=== PATIENT | male | born 1950 | race Caucasian/White ===

== ENCOUNTER → 2016-06-19 | Outpatient (CLI) | payer MEDICARE ==
[2016-06-19 18:13] LABS: Basophils # (A) 0.1 k/uL (0-0.2); Basophils % (A) 1 %; CH 30.7; CHCM 34.3; Eosinophils # (A) 0.3 k/uL (0-0.7); Eosinophils % (A) 4 %; HCT 46.6 % (39.0-53.0); HDW 3.07; HGB 15.8 gm/dL (13.0-17.5); Luc # (Auto) 0.15; Luc % (Auto) 2; Lymphocytes % (A) 28 %; MCH 30.4 pg (25.0-35.0); MCHC 33.8 g/dL (31.0-37.0); MCV 89.9 fL (80.0-100.0); Mean Platelet Volume 6.9; Monocytes # (A) 0.4 k/uL (0-1.0); Monocytes % (A) 5 %; Neutrophils # (A) 4.4 k/uL (1.3-7.7); Neutrophils % (A) 60 %; RBC 5.19 m/uL (4.30-5.90); RDW 13.5 % (11.5-15.5); WBC 7.3 k/uL (3.8-10.6); WBC (Perox) 7.15
[2016-06-19 18:24] LABS: ALT 62 U/L (21-72); AST 41 U/L (17-59); Alkaline Phosphatase 92 U/L (38-126); Anion Gap 14 mmol/L; Blood Urea Nitrogen 25 mg/dL (9-20); C Reactive Protein <5.0 mg/L (<10.0); Calcium 9.3 mg/dL (8.4-10.2); Carbon Dioxide 22 mmol/L (22-30); Chloride 106 mmol/L (98-107); Creatine Kinase 105 U/L (55-170); Glucose 97 mg/dL (74-99); LDH 540 U/L (313-618); Non-African American GFR(MDRD) >60 (>60 ml/min/1.73 sqM); Phosphorous 3.9 mg/dL (2.5-4.5); Potassium 4.3 mmol/L (3.5-5.1); Sodium 142 mmol/L (137-145); Total Bilirubin 0.7 mg/dL (0.2-1.3); Total Protein 6.8 g/dL (6.3-8.2)
[2016-06-19 18:25] LABS: Rheumatoid Factor, Qnt 13 IU/mL (<12)
[2016-06-19 18:32] LABS: Appearance,Urine Clear (Clear); Bilirubin,Urine Negative (Negative); Glucose,Urine (UA) Trace (Negative); Ketones,Urine Negative (Negative); Leukocyte Esterase,Urine Negative (Negative); Nitrite,Urine Negative (Negative); Protein,Urine Negative (Negative); Specific Gravity,Urine 1.019 (1.001-1.035); UA Billing (MACRO vs. MICRO) CHEM; Urobilinogen,Urine <2.0 mg/dL (<2.0)
[2016-06-19 18:36] LABS: Hemoglobin A1C 6.1 % (4.2-6.1)
[2016-06-19 19:10] LABS: Vitamin B12 708 pg/mL (239-931)
[2016-06-19 20:05] LABS: Erythrocyte Sedimentation Rate 8 mm/hr (0-15)
[2016-06-20 00:46] LABS: ANA w/Reflex to Titer NEGATIVE (NEGATIVE)
[2016-06-21 05:59] LABS: Lyme Antibodies Total(IgG/IgM) 0.05 (<0.90)
[2016-06-21 11:26] LABS: Vitamin D, 1, 25-Dihydroxy 55 pg/mL (20 - 79)
[2016-06-21 13:09] LABS: HLA B27 NEGATIVE; HLA B27 Comment SEEBELOW
[2016-06-22 07:45] LABS: Hepatits C Virus RNA, Quant <12 IU/mL (<12); LOG HCV IU/mL <1.08 (<1.08)
[2016-06-27 15:18] LABS: Mis test requested (Blood) Alpha-galactosidase
== END | disposition home or self-care (01) ==
LOC: LABWHC1 16:56
PROVIDERS: ATTEND Physical Medicine & Rehabilitation
DX: M47.817 Spondylosis without myelopathy or radiculopathy, lumbosacral region (principal); G60.3 Idiopathic progressive neuropathy; M54.5 Low back pain; R20.2 Paresthesia of skin
CPT/HCPCS: 36415; 80053; 81003; 82164; 82306; 82310; 82550; 82553; 82607; 82652; 82657; 83036; 83516; 83615; 83970; 84100; 84165; 84207; 84425; 84443; 85025; 85652; 86038; 86060; 86140; 86235; 86431; 86618; 86812; 87522

== ENCOUNTER → 2017-07-27 | Outpatient (CLI) | payer MEDICARE ==
--- NOTE | 2017-07-27 09:15 | XR ---
EXAMINATION TYPE: XR chest 2V DATE OF EXAM: 07/27/2017 COMPARISON: 12/02/2014 HISTORY: Follow-up for pneumonia TECHNIQUE: Frontal and lateral views of the chest are obtained. FINDINGS: There is no focal air space opacity, pleural effusion, or pneumothorax seen. The cardiac silhouette size is within normal limits. The osseous structures are intact. Mild multilevel degener ative changes of the thoracic spine are seen. IMPRESSION: No acute cardiopulmonary process.
== END | disposition home or self-care (01) ==
LOC: RADXRYALE 08:53
PROVIDERS: ATTEND Physician Assistant Medical
DX: J18.0 Bronchopneumonia, unspecified organism (principal)
CPT/HCPCS: 71046

== ENCOUNTER → 2017-08-20 | Outpatient (CLI) | payer MEDICARE ==
[2017-08-20 17:43] LABS: HGB 14.7 gm/dL (13.0-17.5); MCH 29.6 pg (25.0-35.0); MCHC 34.2 g/dL (31.0-37.0); MCV 86.5 fL (80.0-100.0); Mean Platelet Volume 7.6; Platelet Count 207 k/uL (150-450); RBC 4.98 m/uL (4.30-5.90); RDW 14.4 % (11.5-15.5); WBC 8.4 k/uL (3.8-10.6)
[2017-08-20 17:59] LABS: Potassium 4.4 mmol/L (3.5-5.1)
== END | disposition home or self-care (01) ==
LOC: LABWHC1 17:09
PROVIDERS: ATTEND Internal Medicine Cardiovascular Disease
DX: Z01.812 Encounter for preprocedural laboratory examination (principal); I25.10 Atherosclerotic heart disease of native coronary artery without angina pectoris
CPT/HCPCS: 36415; 80051; 82565; 84520; 85027

== ENCOUNTER 2017-09-04 10:15 | Day surgery (SDC) | payer MEDICARE ==
[~2017-09-04 10:15] MED LIST: ALPRAZolam 0.25 MG TAB PO PRN; ALPRAZolam 0.5 MG TAB PO PRN; ASPIRIN 325 MG TAB PO STA; ATORVASTATIN 80 MG TAB PO STA; NITROGLYCERIN SL TABS 0.4 MG TAB SUBLINGUAL PRN; SODIUM CHLORIDE 0.9% 1,000 ML in EMPTY BAG 1 BAG IV ONE
[2017-09-04] MEDS ORDERED: fentaNYL (PF) 50 MCG/ML 2 ML AMP ONE (11:20)
[2017-09-04] MEDS ORDERED: LIDOCAINE 2% INJ 20 MG/ML (20 ML MDV) ONE ×2 (11:20→12:34)
[2017-09-04] MEDS ORDERED: MIDAZOLAM 2 MG/2 ML VIAL ONE (11:20)
[2017-09-04] MEDS ORDERED: fentaNYL (PF) 50 MCG/ML 2 ML AMP IV ONE (11:42)
[2017-09-04] MEDS ORDERED: MIDAZOLAM 2 MG/2 ML VIAL IV ONE (11:42)
[2017-09-04] MEDS ORDERED: IV FLUID CONTINUATION 1,000 ML IV ONE (11:43)
[2017-09-04] MEDS ORDERED: LIDOCAINE 2% INJ 20 MG/ML SQ ONE (11:45)
[2017-09-04] MEDS ORDERED: BIVALIRUDIN BOLUS 250 MG/50 ML IV ONE (12:13)
[2017-09-04] MEDS ORDERED: CLOPIDOGREL 75 MG TAB ONE (12:15)
[2017-09-04] MEDS ORDERED: BIVALIRUDIN 250 MG in SODIUM CHLORIDE 0.9% 50 ML IV ONE (12:16)
[2017-09-04] MEDS ORDERED: CLOPIDOGREL 75 MG TAB PO ONE (12:20)
--- NOTE | 2017-09-04 12:20 | P.PCN ---
Date of Procedure: 09/04/17 Preoperative Diagnosis: Positive troponins and positive stress test Postoperative Diagnosis: Critical stenosis involving the mid circumflex within the stent and intermittently disease involving the proximal RCA. Procedure(s) Performed: Left heart catheterization without left ventriculography Description of Procedure: HISTORY: This is a 66-year-old gentleman with history of ischemic heart disease with a previous stent placement of the RCA, LAD and also circumflex coronary artery. Recently patient was in [facility] with chest pains and pneumonia. At that time his troponins were positive. Subsequently, patient had a stress test which showed a evidence of reversible ischemia involving the inferolateral wall and inferobasal segment. Patient is advised to have cardiac catheterization for definitive diagnosis. CONSENT:I have discussed the risks, benefits and alternative therapies for the above-mentioned procedure and for both sedation/analgesia as well as necessary blood product administration, if indicated, as they pertain to this patient. The patient has indicated understanding and acceptance of the risks and procedures discussed. PROCEDURE: Patient was brought to the lab in a fasting state. Patient was given some IV sedation. The right groin is infiltrated with lidocaine and right femoral artery was entered using Seldinger technique. A 6-Russian catheter was left in place and selective coronary arteriography and left ventriculography was performed. Patient tolerated the procedure well. Femoral angiogram was performed and Angio-Seal was applied for hemostasis. No immediate complications were noted and patient was transferred to [facility] in a stable condition Conscious Sedation: Versed 1 mg Fentanyl 25 g Duration 22minutes HEMODYNAMICS: The aortic pressure is about 100/70. Left ankle end-diastolic pressure is about 16. There was no gradient across the aortic valve. SELECTIVE CORONARY ARTERIOGRAPHY: LEFT MAIN: Long with mild disease THE LEFT ANTERIOR DESCENDING CORONARY ARTERY:. This is a good caliber vessel with patent stent in the proximal portion. The mid and distal segments are free of any significant focal lesions. There is a diagonal branch that has ostial stenosis of about 80-90% which is a small- caliber vessel THE LEFT CIRCUMFLEX AND IS CORONARY ARTERY:. This is a fairly caliber vessel giving rise to small OM branch proximally. There is a long stent in the proximal portion of the circumflex to midportion. The midportion has about 70% eccentric in-stent stenosis THE RIGHT CORONARY ARTERY:. This is a good caliber vessel which has diffuse disease in the proximal ,mid and distal segments. In the proximal portion, within the stent ,there appears to be about 50 to 60% stenosis. LEFT VENTRICULOGRAPHY: Not performed FINAL IMPRESSION: Diffuse coronary artery disease with a patent stent in the proximal LAD with a 90% ostial stenosis of the diagonal, about 70% in-stent stenosis involving the mid circumflex and about 50-60% lesion involving the proximal RCA with a diffuse disease involving the rest of the vessel. PLAN: Dr. Azar management to stent the mid circumflex. PROGNOSIS: Fair
[2017-09-04] MEDS ORDERED: NITROGLYCERIN 1000MCG/10ML SYRINGE INTRAARTER ONE (12:26)
[2017-09-04] MEDS ORDERED: IOPAMIDOL-370 125ML BTL INJ ONE (12:37)
[2017-09-04] MEDS ORDERED: RX INFO: IV CONTRAST WAS GIVEN 1 EACH MISC MISCELLANE PRN (12:51)
[2017-09-04] MEDS ORDERED: NITROGLYCERIN SL TABS 0.4 MG TAB SUBLINGUAL PRN ×2 (12:51→12:52)
[2017-09-04] MEDS ORDERED: ZOLPIDEM 5 MG TAB PO PRN (12:51)
[2017-09-04] MEDS ORDERED: ATROPINE SULFATE 0.1 MG/ML 10ML SYRINGE IV PRN (12:51)
[2017-09-04] MEDS ORDERED: MAG HYDROX/AL HYDROX/SIMETH 30 ML CUP PO PRN (12:51)
[2017-09-04] MEDS ORDERED: SODIUM CHLORIDE 0.9% 1,000 ML IV SCH (13:00)
--- NOTE | 2017-09-04 17:29 | PTCA ---
PERCUTANEOUSTRANS CORORONARY ANGIOGRAPHY Mr. Cole is a 66-year-old male with a known history of coronary artery disease, history of hypertension, hyperlipidemia, who presented with symptoms of chest discomfort and had an abnormal myocardial perfusion imaging. He underwent cardiac catheterization by Dr. Sheth and was found to have significant in-stent restenosis that was performed in 2014 in the left circumflex. In view of that, recommendation regarding coronary angioplasty and stenting. The procedure as well as risks and complications were discussed with the patient who is in full understanding and agreement. PROCEDURE: A 6-Irish FL 3.5 guiding catheter was introduced in the system. After cannulating the left main, a 0.014 balanced medium weight J-wire was advanced across the lesion and positioned distally. Then a 2.5 x 12 mm Xience Alpine stent was deployed. It was dilated at 16 atmospheres. After the last inflation, after appropriate wait, the balloon and the guidewire were withdrawn back in the guiding catheter. Images were obtained, repeated. Those images reveal stable successful stenting. At that point, the guiding catheter, the balloon and the guidewire were removed. The sheath was removed. Hemostasis was obtained with deployment of a Preclose. There was no immediate complication. The patient was returned to his room in stable condition. Of note, the patient received Angiomax per protocol as was oral loading dose of clopidogrel. He had chest discomfort with the inflation that resolved at the end of the procedure. RESULTS: Successful stenting of the mid left circumflex with reduction in stenosis from 70% to 0%. RECOMMENDATION: Patient will be continued on aspirin, Plavix, ANTONETTE inhibitor, and statin. The importance of dual antiplatelet treatment were discussed with the patient and his family and they are in full understanding and agreement. Duration of procedure is 16 minutes. MMODL / IJN: [id number] /
--- NOTE | 2017-09-04 17:35 | LTR ---
DATE OF SERVICE: 09/04/[address] Davis: I had the pleasure of performing coronary angioplasty and stenting on Mr. Cole at [facility] on September 04 and a full copy of procedure note will be forwarded to you. In brief, he was found to have significant disease involving the mid left circumflex, underwent successful stenting of that vessel using drug-eluting stent. I am hopeful that this procedure will stabilize his status. Thank you again for allowing me to participate in his care. Please feel free to call for any questions. Sincerely yours, JANETTE / ROSELIA: [phone] /
[2017-09-04] MEDS: METOPROLOL TARTRATE 25 MG TAB PO SCH (20:12)
[2017-09-04] MEDS ORDERED: ATORVASTATIN 80 MG TAB PO SCH (21:00)
[2017-09-05 06:42] LABS: Anion Gap 11 mmol/L; Blood Urea Nitrogen 15 mg/dL (9-20); Calcium 9.2 mg/dL (8.4-10.2); Carbon Dioxide 21 mmol/L (22-30); Chloride 107 mmol/L (98-107); Glucose 135 mg/dL (74-99); Potassium 4.4 mmol/L (3.5-5.1); Sodium 139 mmol/L (137-145)
[2017-09-05] MEDS: METOPROLOL TARTRATE 25 MG TAB PO SCH (08:13)
[2017-09-05 08:16] VITALS: BP 123/72; PULSE 56; RESP 16; TEMP 98
[2017-09-05] MEDS ORDERED: LISINOPRIL 10 MG TAB PO SCH (09:00)
[2017-09-05] MEDS ORDERED: ASPIRIN 81 MG PO SCH (09:00)
[2017-09-05] MEDS ORDERED: CLOPIDOGREL 75 MG TAB PO SCH (09:00)
[2017-09-05 09:37] VITALS: BMI 38.9
--- NOTE | 2017-09-05 11:37 | P.DS ---
Providers Date of admission: 09/04/2017 Attending physician: Jesus Sheth Consults: 09/04/17 12:51 Consult Physician Routine Consulting Provider: [facility] Consult Reason/Comments: Post Interventional patient Do you want consulting provider notified?: Already Contacted Primary care physician: Kirby Davis - Discharge Diagnosis(es) (1) Positive cardiac stress test Current Visit: Yes Status: Acute (2) CAD (coronary artery disease) Current Visit: No Status: Acute (3) Chest pain Current Visit: No Status: Acute (4) HTN (hypertension) Current Visit: No Status: Acute (5) Hyperlipemia Current Visit: No Status: Acute Hospital Course: This is a 66-year-old gentleman with history of ischemic heart disease and previous stent placement who was recently admitted to outside hospital with chest pain and positive troponins. Subsequently, patient had a stress test which showed ischemia in the inferolateral and inferobasal segments. Patient had outpatient cardiac catheterization and was found to have significant in- stent stenosis involving the mid circumflex. Patient also has intermittent disease involving the right coronary artery in the proximal portion and mild to moderate disease in the mid and distal portions. The stent in the LAD is patent. Patient had repeat stent placement of circumflex. Patient is feeling better and seemed to be free of any chest pain. Patient's hospital course has been stable. His groin shows mild ecchymosis without any hematoma. Patient denies any pain. Patient will be discharged home on current medical therapy except increase the dose of the atorvastatin to 80 mg and adding Plavix 75 mg. Patient will have follow-up in the office in one week. Patient is advised to any heavy lifting, pushing and pulling for the next one week. Plan - Discharge Summary Discharge Rx Participant: No New Discharge Prescriptions: New Aspirin 81 mg PO DAILY chew Atorvastatin [Lipitor] 80 mg PO HS #30 tab Clopidogrel [Plavix] 75 mg PO DAILY #90 tab Continue Metoprolol Tartrate [Lopressor] 25 mg PO BID #60 tab Nitroglycerin Sl Tabs [Nitrostat] 0.4 mg SUBLINGUAL Q5M PRN #20 tab PRN Reason: Chest Pain Cholecalciferol [Vitamin D3] 1,000 unit PO DAILY Lisinopril [Zestril] 10 mg PO DAILY Discontinued Atorvastatin [Lipitor] 10 mg PO HS No Action Aspirin 325 mg PO DAILY Discharge Medication List Aspirin 325 mg PO DAILY 11/18/15 [History] Metoprolol Tartrate [Lopressor] 25 mg PO BID #60 tab 04/24/15 [Rx] Nitroglycerin Sl Tabs [Nitrostat] 0.4 mg SUBLINGUAL Q5M PRN #20 tab 04/24/15 [Rx ] Cholecalciferol [Vitamin D3] 1,000 unit PO DAILY 05/08/16 [History] Lisinopril [Zestril] 10 mg PO DAILY 05/08/16 [History] Aspirin 81 mg PO DAILY chew 09/05/17 [Rx] Atorvastatin [Lipitor] 80 mg PO HS #30 tab 09/05/17 [Rx] Clopidogrel [Plavix] 75 mg PO DAILY #90 tab 09/05/17 [Rx] Follow up Appointment(s)/Referral(s): Jesus Sheth MD [STAFF PHYSICIAN] - 09/13/17 2:15 pm () Patient Instructions/Handouts: *[facility] - After Heart Catheterization - Customer Service Clerk Instructions, Left Heart Catheterization (DC) Discharge Disposition: HOME SELF-CARE
[2017-09-05] MEDS ORDERED: CHOLECALCIFEROL 1,000 UNIT TAB PO SCH (12:00)
== END 2017-09-05 13:40 | disposition home or self-care (01) ==
LOC: CATHCVL 10:15 → 6SEL 12:35 → CATHCVL 09-05 13:40
PROVIDERS: ATTEND Internal Medicine Cardiovascular Disease
DX: I25.10 Atherosclerotic heart disease of native coronary artery without angina pectoris (principal); T82.855A Stenosis of coronary artery stent, initial encounter; Z87.891 Personal history of nicotine dependence; I10 Essential (primary) hypertension; E78.5 Hyperlipidemia, unspecified; Z79.82 Long term (current) use of aspirin; Z79.899 Other long term (current) drug therapy; Z88.8 Allergy status to other drugs, medicaments and biological substances
CPT/HCPCS: 93458; 80048; C9600; C1769 ×2; C1887; C1894; C1874; C1760; J2001; J2250; J3010; J0583; Q9967

== ENCOUNTER → 2017-10-15 | Outpatient (CLI) | payer MEDICARE ==
--- NOTE | 2017-10-15 13:20 | XR ---
EXAMINATION TYPE: XR chest 2V DATE OF EXAM: 10/15/2017 COMPARISON: chest xray 07/27/2017 HISTORY: Shortness of breath TECHNIQUE: Frontal and lateral views of the chest are obtained. FINDINGS: There is no focal air space opacity, pleural effusion, or pneumothorax seen. The cardiac silhouette size is within normal limits. The osseous structures are intact. Postop change noted to the cervical spine. There are coronary artery calcifications. Increased AP diameter of the chest may be indicative of underlying COPD. Patient is rotated. IMPRESSION: No acute cardiopulmonary process.
== END | disposition home or self-care (01) ==
LOC: RADXRYALE 10:26
PROVIDERS: ATTEND Physician Assistant Medical
DX: R06.02 Shortness of breath (principal)
CPT/HCPCS: 71046

== ENCOUNTER → 2020-04-02 | Outpatient (CLI) | payer MEDICARE ==
--- NOTE | 2020-04-07 13:12 | P.ARTDOP ---
Arterial Doppler LOWER EXTREMITY ARTERIAL DOPPLER: DATE OF SERVICE: 04/02/2020 Reason for study: Hip and foot pain. Doppler waveforms: Multiphasic bilaterally throughout. Pulse volume recording: []. Pressure gradients: None. Ankle-brachial indices: Greater than 1 bilaterally. Toe brachial indices: 0.9 on the right, 1.14 on the left Impression: Normal study.
== END | disposition home or self-care (01) ==
LOC: RADUSWWP 12:47
PROVIDERS: ATTEND Family Medicine
DX: I73.9 Peripheral vascular disease, unspecified (principal)
CPT/HCPCS: 93922

== ENCOUNTER → 2020-04-08 | Outpatient (CLI) | payer MEDICARE ==
--- NOTE | 2020-04-08 11:07 | ECHOF ---
Referral Reason:I10 hypertention MEASUREMENTS -------- HEIGHT: 180.3 cm WEIGHT: 127.0 kg BP: RVIDd: 3.3 cm (< 3.3) IVSd: 1.5 cm (0.6 - 1.1) LVIDd: 3.9 cm (3.9 - 5.3) LVPWd: 1.5 cm (0.6 - 1.1) IVSs: 1.8 cm LVIDs: 2.4 cm LVPWs: 2.1 cm LAESV Index (A-L): 27.42 ml/m Ao Diam: 3.5 cm (2.0 - 3.7) AV Cusp: 3.0 cm (1.5 - 2.6) LA Diam: 3.4 cm (2.7 - 3.8) MV EXCURSION: 23.818 mm (> 18.000) MV EF SLOPE: 207 mm/s (70 - 150) EPSS: 0.4 cm MV E Giancarlo: 0.91 m/s MV DecT: 195 ms MV A Giancarlo: 0.55 m/s MV E/A Ratio: 1.65 RAP: 5.00 mmHg RVSP: 20.11 mmHg FINDINGS -------- This was a technically difficult study with suboptimal views. The left ventricular size is normal. There is moderate concentric left ventricular hypertrophy. O verall left ventricular systolic function is normal with, an EF between 55 - 60 %. The diastolic fi lling pattern is normal for the age of the patient 14.01. The right ventricle is mildly enlarged. The left atrial size is normal. Normal LA size by volume 22+/-6 ml/m2. The right atrial size is normal. The aortic valve is trileaflet and appears structurally normal. The mitral valve is normal. There is trace mitral regurgitation. The tricuspid valve appears structurally normal. Mild tricuspid regurgitation present. Right vent ricular systolic pressure is normal at < 35 mmHg. Trace/mild (physiologic) pulmonic regurgitation. The aortic root size is normal. IVC Not well visulized. There is no pericardial effusion. CONCLUSIONS -------- 1. The left ventricular size is normal. 2. There is moderate concentric left ventricular hypertrophy. 3. Overall left ventricular systolic function is normal with, an EF between 55 - 60 %. 4. The diastolic filling pattern is normal for the age of the patient 14.01 5. The right ventricle is mildly enlarged. 6. There is trace mitral regurgitation. 7. Mild tricuspid regurgitation present. 8. Trace/mild (physiologic) pulmonic regurgitation. 9. There is no pericardial effusion. PIPE CAULKER: Virginia Mohr RDCS
--- NOTE | 2020-04-08 14:51 | FL ---
EXAMINATION TYPE: FL barium swallow DATE OF EXAM: 04/08/2020 COMPARISON: NONE HISTORY: Hypertension, dysphagia, choking with meals. FINDINGS: Patient was given high density barium to drink. Evaluation performed under real-time fluoro scopy. Patient shows postop change of the lower cervical spine, degenerative disc changes are present, large anterior osteophyte present at the inferior margin of the C3 vertebral body. There are facet arthrop athy changes. Swallowing mechanism is normal. No extrinsic or intrinsic esophageal lesion. No evident hiatal hernia. There is some reflux from the distal esophagus up to the cervical esophagus noted on exam. 1 minute 16 seconds fluoroscopy time, 59 intraoperative images obtained. IMPRESSION: Gastroesophageal reflux.
== END | disposition home or self-care (01) ==
LOC: RADECHMAIN 10:35
PROVIDERS: ATTEND Family Medicine
DX: I07.1 Rheumatic tricuspid insufficiency (principal); I37.1 Nonrheumatic pulmonary valve insufficiency; K21.9 Gastro-esophageal reflux disease without esophagitis; I10 Essential (primary) hypertension
CPT/HCPCS: 74220; 93306

== ENCOUNTER → 2020-08-05 | Outpatient (CLI) | payer MEDICARE ==
--- NOTE | 2020-08-05 10:17 | US ---
EXAMINATION TYPE: US duplex aorta DATE OF EXAM: 08/05/2020 COMPARISON: NONE CLINICAL HISTORY: [id number] SCREENING FOR CARDIOVASCULAR DISEASE. screening for AAA EXAM MEASUREMENTS: Abdominal Aorta: Proximal: 2.1 x 1.6cm Mid: 1.6 x 1.2cm Distal: 1.4 x 1.2cm Bifurcation: RT: 1.0 X 0.8cm LT: 1.1 x 0.8cm No evidence of AAA at this time as visualized. Successful visualization through the bifurcation. IMPRESSION: No ultrasound evidence for greater than 3.0 cm AAA.
== END ==
LOC: RADUSWWP 09:32
PROVIDERS: ATTEND Family Medicine
DX: Z13.6 Encounter for screening for cardiovascular disorders (principal); I10 Essential (primary) hypertension
CPT/HCPCS: 93979

== ENCOUNTER → 2021-01-17 | Outpatient (CLI) | payer MEDICARE ==
--- NOTE | 2021-01-17 11:07 | XR ---
EXAM TYPE: LUMBAR SPINE X RAY SERIES COMPARISON: NONE HISTORY: Pain TECHNIQUE: 4 views are submitted. FINDINGS: Alignment is anatomic. The pedicles are intact. The transverse processes are intact. There is grad e 1 anterolisthesis of L4 on L5. There is multilevel moderate to severe degenerative disc disease and facet arthropathy. Retrolisthesis of L3 on L4. There is atherosclerotic change of the vasculature. D iffuse osteopenia. IMPRESSION: 1. Multilevel moderate to severe degenerative disc disease with facet arthropathy and grade 1 anterol isthesis L4 on L5. Multilevel foraminal encroachment suspected.
== END | disposition home or self-care (01) ==
LOC: RADXRYALE 09:26
PROVIDERS: ATTEND Physician Assistant Medical
DX: M51.36 Other intervertebral disc degeneration, lumbar region (principal); M46.96 Unspecified inflammatory spondylopathy, lumbar region; M54.41 Lumbago with sciatica, right side; M43.16 Spondylolisthesis, lumbar region
CPT/HCPCS: 72110

== ENCOUNTER 2021-02-25 05:42 | Day surgery (SDC) | payer MEDICARE ==
[2021-02-23 16:07] VITALS: BMI 38.2
[2021-02-25] MEDS ORDERED: SODIUM CHLORIDE 0.9% 1,000 ML IV ONE ×2 (06:10→07:25)
[2021-02-25 06:20] VITALS: RESP 18; TEMP 98.1
[2021-02-25 06:32] LABS: Basophils # (A) 0.1 k/uL (0-0.2); Basophils % (A) 1 %; Eosinophils # (A) 0.3 k/uL (0-0.7); Eosinophils % (A) 4 %; HCT 45.7 % (39.0-53.0); HGB 15.4 gm/dL (13.0-17.5); Lymphocytes # (A) 2.3 k/uL (1.0-4.8); Lymphocytes % (A) 31 %; MCH 30.4 pg (25.0-35.0); MCHC 33.8 g/dL (31.0-37.0); MCV 89.9 fL (80.0-100.0); Mean Platelet Volume 7.9; Monocytes # (A) 0.4 k/uL (0-1.0); Monocytes % (A) 6 %; Neutrophils # (A) 4.3 k/uL (1.3-7.7); Neutrophils % (A) 57 %; Platelet Count 196 k/uL (150-450); RBC 5.08 m/uL (4.30-5.90); RDW 13.3 % (11.5-15.5); WBC 7.5 k/uL (3.8-10.6)
[2021-02-25 06:55] LABS: Calcium 9.5 mg/dL (8.4-10.2); Potassium 4.6 mmol/L (3.5-5.1)
[2021-02-25 07:05] LABS: Glucose,Whole Blood 145 mg/dL (75-99)
[2021-02-25] MEDS ORDERED: HEPARIN SODIUM 1,000 UN/ML (10ML VL) ONE (07:23)
[2021-02-25] MEDS ORDERED: fentaNYL (PF) 50 MCG/ML 2 ML AMP ONE (07:23)
[2021-02-25] MEDS ORDERED: LIDOCAINE 1% INJ 10MG/ML (20 ML MDV) ONE (07:23)
[2021-02-25] MEDS ORDERED: VERAPAMIL 2.5 MG/ML 2 ML AMP ONE (07:23)
[2021-02-25] MEDS ORDERED: fentaNYL (PF) 50 MCG/ML 2 ML AMP IVP ONE (07:53)
[2021-02-25] MEDS ORDERED: MIDAZOLAM 2 MG/2 ML VIAL IVP ONE (07:53)
[2021-02-25] MEDS ORDERED: LIDOCAINE 1% INJ 10MG/ML (20 ML MDV) SQ ONE ×2 (07:57→07:58)
[2021-02-25] MEDS ORDERED: VERAPAMIL SYRINGE (5 MG/10 ML) INTRAARTER ONE (07:59)
[2021-02-25] MEDS ORDERED: HEPARIN SODIUM 1,000 UN/ML (10ML VL) IV ONE (08:01)
[2021-02-25] MEDS ORDERED: IOPAMIDOL-370 125ML BTL INJ ONE (08:25)
[2021-02-25] MEDS ORDERED: RX INFO: IV CONTRAST WAS GIVEN 1 EACH MISC MISCELLANE PRN (08:27)
[2021-02-25] MEDS ORDERED: SODIUM CHLORIDE 0.9% 1,000 ML IV SCH (08:30)
--- NOTE | 2021-02-25 10:15 | P.CARDCATH ---
Date of Procedure: 02/25/21 Preoperative Diagnosis: Positive stress test and chest pains Postoperative Diagnosis: Stable coronary artery disease with patent stents in the LAD and also right. Critical stenosis of the second diagonal at the ostium Procedure(s) Performed: Left heart catheterization with selective coronary arteriography. No left ventriculography Description of Procedure: HISTORY: This is a 70-year-old gentleman with history of multiple stent placement. Has been having some symptoms of angina and had a positive stress test with ischemia in the midanterior wall and lateral wall. He is advised to have a cardiac catheterization for definitive diagnosis CONSENT:I have discussed the risks, benefits and alternative therapies for the above-mentioned procedure and for both sedation/analgesia as well as necessary blood product administration, if indicated, as they pertain to this patient. The patient has indicated understanding and acceptance of the risks and procedures discussed. PROCEDURE: Patient was brought to the lab in a fasting state. Patient was given some IV sedation. The right wrist is infiltrated with lidocaine and right radial artery was entered using Seldinger technique. A 6-Nepali catheter was left in place and selective coronary arteriography was performed. Patient tolerated the procedure well. TR band was applied for hemostasis. No immediate complications were noted and patient was transferred to [facility] in a stable condition Conscious Sedation: Versed 1mg Fentanyl 50 g Duration 27minutes HEMODYNAMICS: The aortic pressure was very poor 130/70. Left ventricle end- diastolic pressure was not measured SELECTIVE CORONARY ARTERIOGRAPHY: LEFT MAIN: Normal length and free of occlusive disease THE LEFT ANTERIOR DESCENDING CORONARY ARTERY:. Good caliber vessel with patent stents in the midportion. The second diagonal branch has critical lesion involving the ostium. This has been chronic without any acute change. No other significant stenosis noted in the left anterior descending THE LEFT CIRCUMFLEX AND IS CORONARY ARTERY: Good caliber vessel giving rise to small sized OM branch. The vessel is free of any significant focal occlusive lesion THE RIGHT CORONARY ARTERY:. This is a good caliber vessel with multiple stents. There is mild in-stent stenosis in midportion which is about 30-40%. This has been chronic without any acute change. Rest of the vessel is mild plaque without any critical lesions LEFT VENTRICULOGRAPHY: Not performed FINAL IMPRESSION:. Table coronary disease with critical lesion involving the ostium of the second diagonal. The right coronary artery has mild in-stent stenosis. No other critical lesions are noted at this time. No significant change compared 2018 PLAN: Maximum medical therapy. Films are reviewed with the Dr. Azar . PROGNOSIS: Fair
[2021-02-25 12:03] VITALS: BP 146/66; PULSE 56
== END 2021-02-25 12:54 | disposition home or self-care (01) ==
LOC: CATHCVL 05:42
PROVIDERS: ATTEND Internal Medicine Cardiovascular Disease
DX: I25.10 Atherosclerotic heart disease of native coronary artery without angina pectoris (principal); Z95.818 Presence of other cardiac implants and grafts
CPT/HCPCS: 93454; 80048; 85025; 87635; C1894; C1769; J2250; J2001; J3010; J1644; Q9967

== ENCOUNTER → 2022-03-03 | Outpatient (CLI) | payer MEDICARE ==
--- NOTE | 2022-03-03 12:09 | XR ---
EXAMINATION TYPE: XR chest 2V DATE OF EXAM: 03/03/2022 COMPARISON: 10/15/17 HISTORY: Shortness of breath TECHNIQUE: Frontal and lateral views of the chest are obtained. FINDINGS: Scattered senescent parenchymal changes noted. Hyperinflation compatible with COPD. No evidence for infiltrate. No evidence for atelectasis. Heart size is stable. Mediastinal structures are stable and grossly unremarkable. No evidence for hilar prominence. Degenerative changes dorsal spine. IMPRESSION: 1. No evidence for acute pulmonary disease.
== END | disposition home or self-care (01) ==
LOC: RADXRYALE 11:42
PROVIDERS: ATTEND Physician Assistant Medical
DX: R06.02 Shortness of breath (principal)
CPT/HCPCS: 71046

== ENCOUNTER → 2022-03-17 | Outpatient (CLI) | payer MEDICARE ==
--- NOTE | 2022-03-18 16:11 | CT ---
EXAMINATION TYPE: CT brain wo con DATE OF EXAM: 03/17/2022 COMPARISON: None HISTORY: loss of balance and dizziness CT DLP: 1064.30 mGycm Automated exposure control for dose reduction was used. Helical imaging through the brain. Coronal sa gittal reconstructions. FINDINGS: There is no hemorrhage or hydrocephalus. Periventricular white matter shows patchy low attenuation. C alvarium is intact. Paranasal sinuses and mastoid air cells as visualized are normal. Orbits are symm etric. IMPRESSION: NONSPECIFIC WHITE MATTER DEMYELINATION MOST LIKELY RELATED TO CHRONIC SMALL VESSEL ISCHEMIC CHANGES. MRI MAY BE OF BENEFIT.
== END | disposition home or self-care (01) ==
LOC: RADCTMAIN 16:33
PROVIDERS: ATTEND Family Medicine
DX: G93.89 Other specified disorders of brain (principal); I10 Essential (primary) hypertension; E11.9 Type 2 diabetes mellitus without complications; E78.2 Mixed hyperlipidemia
CPT/HCPCS: 70450

== ENCOUNTER 2023-12-05 22:36 | Observation (INO) | payer MEDICARE ==
[2023-12-05] MEDS: ASPIRIN 81 MG PO STA (23:33)
[2023-12-05] MEDS: NITROGLYCERIN OINT 1 INCH/GM PACKET TOPICAL SCH (23:34)
[2023-12-05] MEDS: SODIUM CHLORIDE 0.9% 1,000 ML IV STA (23:34)
[2023-12-05 23:46] LABS: Basophils # (A) 0.1 k/uL (0-0.2); Basophils % (A) 1 %; Eosinophils # (A) 0.2 k/uL (0-0.7); Eosinophils % (A) 2 %; HCT 45.5 % (39.0-53.0); Lymphocytes # (A) 3.1 k/uL (1.0-4.8); Lymphocytes % (A) 34 %; MCH 29.3 pg (25.0-35.0); MCHC 33.1 g/dL (31.0-37.0); MCV 88.5 fL (80.0-100.0); Mean Platelet Volume 8.5; Monocytes # (A) 0.5 k/uL (0-1.0); Monocytes % (A) 6 %; Neutrophils % (A) 55 %; Platelet Count 202 k/uL (150-450); RBC 5.14 m/uL (4.30-5.90); RDW 14.7 % (11.5-15.5)
[2023-12-05 23:51] LABS: Partial Thromboplastin Time 23.9 sec (22.0-30.0); Prothrombin Time 11.1 sec (10.0-12.5)
[2023-12-06 00:02] LABS: ALT 22 U/L (4-49); AST 35 U/L (17-59); African American GFR (CKD) 77 (>60 ml/min/1.73 sqM); Albumin 4.3 g/dL (3.5-5.0); Alkaline Phosphatase 95 U/L (38-126); Anion Gap 10 mmol/L; Blood Urea Nitrogen 23 mg/dL (9-20); Calcium 9.5 mg/dL (8.4-10.2); Carbon Dioxide 22 mmol/L (22-30); Chloride 105 mmol/L (98-107); Glucose 112 mg/dL (74-99); Magnesium 1.8 mg/dL (1.6-2.3); Non-African American GFR(CKD) 67 (>60 ml/min/1.73 sqM); Potassium 4.5 mmol/L (3.5-5.1); Sodium 137 mmol/L (137-145); Total Bilirubin 1.1 mg/dL (0.2-1.3); Total Protein 6.7 g/dL (6.3-8.2)
--- NOTE | 2023-12-06 00:13 | ED ---
General Adult HPI - General Chief complaint: Chest Pain Stated complaint: chest pain Time Seen by Provider: 12/05/23 23:00 Source: patient, EMS, RN notes reviewed, old records reviewed Mode of arrival: EMS Limitations: no limitations - History of Present Illness Initial comments: Patient is a 72-year-old male who was transferred here from [facility] for chest pain. Has a history significant for multiple cardiac stents. States he had severe left-sided chest pain yesterday that went away on its own. Had some mild residual pressure which is somewhat normal for him. Also has a history of intermittent dizziness especially with ambulation. Presented to his PCP earlier today who instructed him to go to the ER for workup. Patient does follow-up with cardiology at our facility and he was transferred here for further evaluation. They did a cardiopulmonary workup which was unremarkable including D-dimer within normal limits, undetectable troponin. EKG looked within acceptable limits as well. He was transferred here for cardiac obs. Currently has no significant chest discomfort. Presents for further evaluation. He did not receive aspirin at the other facility. - Related Data Home Medications Medication Instructions Recorded Confirmed Cholecalciferol [Vitamin D3 (25 5,000 unit PO DAILY 05/08/16 02/23/21 Mcg = 1000 Iu)] lisinopriL [Zestril] 15 mg PO DAILY 05/08/16 02/25/21 Aspirin 325 mg PO DAILY 02/23/21 02/25/21 Cetirizine HCl [Zyrtec] 10 mg PO DAILY 02/23/21 02/23/21 Metoprolol Tartrate [Lopressor] 12.5 mg PO BID 02/23/21 02/25/21 Omeprazole 20 mg PO DAILY 02/23/21 02/25/21 Pravastatin Sodium [Pravachol] 40 mg PO DAILY 02/23/21 02/25/21 metFORMIN HCL [Glucophage] 500 mg PO BID 02/23/21 02/25/21 Allergies Allergy/AdvReac Type Severity Reaction Status Date / Time No Known Allergies Allergy Verified 12/05/23 23:25 Review of Systems ROS Statement: Those systems with pertinent positive or pertinent negative responses have been documented in the HPI. Review of Systems: CONST: Denies fever EYES: Denies blurry vision ENT: Denies nasal congestion C/V: Endorses mild chest pressure. RESP: Denies shortness of breath GI: Denies abdominal pain : Denies dysuria SKIN: Denies rash. MSK: Denies joint pain. NEURO: Denies headache ROS Other: All systems not noted in ROS Statement are negative. Past Medical History Past Medical History: Cancer, Chest Pain / Angina, Diabetes Mellitus, GERD/Reflux, Hyperlipidemia, Hypertension, Myocardial Infarction ([place]), Neurologic Disorder, Osteoarthritis (OA), Pneumonia, Prostate Disorder, Sleep Apnea/CPAP/BIPAP Additional Past Medical History / Comment(s): See Dr Sheth's H&P, SOB w/exertion started in October, supposed to use CPAP,. BLADDER CA 2006. BPH, seasonal allergies, sinus problems,. BILAT TINNITIS. NEUROPATHY-BILAT FEET Last Myocardial Infarction Date:: 2014 History of Any Multi-Drug Resistant Organisms: None Reported Past Surgical History: Appendectomy, Bladder Surgery, Heart Catheterization With Stent, Hernia Repair, Orthopedic Surgery, Prostate Surgery, Tonsillectomy Additional Past Surgical History / Comment(s): COLONOSCOPY, bladder tumor removed. EGD, total of 8 stents,. ORIF RT ANKLE. REMOVAL HARDWARE. Cervical Fusion C4,C5,C6. Past Anesthesia/Blood Transfusion Reactions: Motion Sickness Additional Past Anesthesia/Blood Transfusion Reaction / Comment(s): OCCASIONAL VERTIGO Date of Last Stent Placement:: LAST ONE 2014 Past Psychological History: No Psychological Hx Reported Smoking Status: Former smoker Past Alcohol Use History: None Reported Past Drug Use History: None Reported - Past Family History Mother Family Medical History: Cancer Additional Family Medical History / Comment(s): ARRYTHMIA, VALVE REPLACEMENT. Father Family Medical History: Myocardial Infarction ([place]) Additional Family Medical History / Comment(s): AGE 62 General Exam - General Exam Comments Initial Comments: General: Appears in no acute distress. HEAD: Normal with no signs of head trauma. EYES: PERRLA, EOMI, conjunctiva normal, no discharge. ENT: Hearing grossly intact, normal oropharynx. RESPIRATORY: Clear breath sounds bilaterally. No wheezes, rales, or rhonchi. C/V: Regular rate and rhythm. S1 and S2 auscultated, no edema, peripheral pulses 2+ and intact throughout ABD: Abd is soft, nontender, nondistended EXT: Normal range of motion, no obvious deformity SKIN: No rashes or lesions observed on exposed skin. NEURO: Alert and oriented x 4. Cranial nerves II-XII intact. No focal sensory o r strength deficits. Limitations: no limitations Course Vital Signs 12/05/23 12/05/23 12/05/23 23:00 23:25 23:31 Temperature 97.8 F Pulse Rate 55 L 59 L Pulse Rate [ 55 L Bilateral Command And Control Specialist ] Respiratory 18 20 Rate Blood Pressure 141/71 O2 Sat by Pulse 97 97 Oximetry 12/05/23 23:32 Temperature Pulse Rate Pulse Rate [ Bilateral Command And Control Specialist ] Respiratory 20 Rate Blood Pressure O2 Sat by Pulse Oximetry Medical Decision Making - Medical Decision Making Was pt. sent in by a medical professional or institution (, PA, MOLD PREPARER, urgent care, hospital, or senior care...) When possible be specific @ -Transferred from [facility] for cardiac observation Did you speak to anyone other than the patient for history (EMS, parent, family, police, friend...)? What history was obtained from this source @ -No Did you review nursing and triage notes (agree or disagree)? Why? @ -I reviewed and agree with nursing and triage notes Were old charts reviewed (outside hosp., previous admission, EMS record, old EKG, old radiological studies, urgent care reports/EKG's, senior care records)? Report findings @ -Charts reviewed from [facility]. Patient had undetectable troponin, EKG unremarkable. Dimer was within acceptable limits. Differential Diagnosis (chest pain, altered mental status, abdominal pain women, abdominal pain men, vaginal bleeding, weakness, fever, dyspnea, syncope, headache, dizziness, GI bleed, back pain, seizure, CVA, palpatations, mental health, musculoskeletal)? @ -Differential Chest Pain: Stable Angina, Unstable Angina, STEMI, NSTEMI Aortic Dissection, Pneumothorax, Musculoskeletal, Esophageal Spasm GERD, Cholecystitis, Pancreatitis, Zoster, this is not meant to be an all-inclusive list. EKG interpreted by me (3pts min.). @ -As above X-rays interpreted by me (1pt min.). @ -None done CT interpreted by me (1pt min.). @ -None done U/S interpreted by me (1pt. min.). @ -None done What testing was considered but not performed or refused? (CT, X-rays, U/S, labs)? Why? @ -None What meds were considered but not given or refused? Why? @ -None Did you discuss the management of the patient with other professionals (professionals i.e. DrMarie, PA, MOLD PREPARER, lab, RT, psych nurse, delinquency prevention social worker, marble mechanic helper, teacher, deputy probation officer, rehabilitation caseworker)? Give summary @ - I spoke with the admitting physician, Dr. Jara who accepted the admission. Was smoking cessation discussed for >3mins.? @ -No Was critical care preformed (if so, how long)? @ -No Were there social determinants of health that impacted care today? How? (Homelessness, low income, unemployed, alcoholism, drug addiction, transportation, low edu. Level, literacy, decrease access to med. care, assisted, rehab)? @ -No Was there de-escalation of care discussed even if they declined (Discuss DNR or withdrawal of care, Hospice)? DNR status @ -No What co-morbidities impacted this encounter? (DM, HTN, Smoking, COPD, CAD, Cancer, CVA, ARF, Chemo, Hep., AIDS, mental health diagnosis, sleep apnea, morbid obesity)? @ -CAD Was patient admitted / discharged? Hospital course, mention meds given and route, prescriptions, significant lab abnormalities, going to OR and other pertinent info. @ -Patient transferred here for cardiac observation. We will repeat laboratory studies and EKG. Patient in agreement this plan. Nitropaste will be applied and patient will be given 324 mg of aspirin has he has not yet received it. Patient also given a dose of Antivert which is a home medication for him. He was in agreement this plan. Patient was started on gentle fluid hydration. Vital signs within acceptable limits. EKG shows no signs of acute ischemia. Laboratory studies unremarkable including undetectable troponin. At this time patient will be admitted. He was in agreement this plan. I spoke with the admitting physician, Dr. Jara who accepted the admission. Undiagnosed new problem with uncertain prognosis? @ -No Drug Therapy requiring intensive monitoring for toxicity (Heparin, Nitro, Insulin, Cardizem)? @ -No Were any procedures done? @ -No Diagnosis/symptom? @ -Chest pain Acute, or Chronic, or Acute on Chronic? @ -Acute Uncomplicated (without systemic symptoms) or Complicated (systemic symptoms)? @ -Complicated Side effects of treatment? @ -No Exacerbation, Progression, or Severe Exacerbation? @ -No Poses a threat to life or bodily function? How? (Chest pain, [place], [place], pneumonia, PE, COPD, DKA, ARF, appy, cholecystitis, CVA, Diverticulitis, Homicidal, Suicidal, threat to staff... and all critical care pts) @ -Yes - Lab Data Result diagrams: 12/05/23 23:15 12/05/23 23:15 Lab Results 12/05/23 12/05/23 12/05/23 Range/Units 23:15 23:15 23:15 WBC 9.0 (3.8-10.6) k/uL RBC 5.14 (4.30-5.90) m/uL Hgb 15.0 (13.0-17.5) gm/dL Hct 45.5 (39.0-53.0) % MCV 88.5 (80.0-100.0) fL MCH 29.3 (25.0-35.0) pg MCHC 33.1 (31.0-37.0) g/dL RDW 14.7 (11.5-15.5) % Plt Count 202 (150-450) k/uL MPV 8.5 Neutrophils % 55 % Lymphocytes % 34 % Monocytes % 6 % Eosinophils % 2 % Basophils % 1 % Neutrophils # 5.0 (1.3-7.7) k/uL Lymphocytes # 3.1 (1.0-4.8) k/uL Monocytes # 0.5 (0-1.0) k/uL Eosinophils # 0.2 (0-0.7) k/uL Basophils # 0.1 (0-0.2) k/uL PT 11.1 (10.0-12.5) sec INR 1.0 (<1.2) APTT 23.9 (22.0-30.0) sec Sodium 137 (137-145) mmol/L Potassium 4.5 (3.5-5.1) mmol/L Chloride 105 (98-107) mmol/L Carbon Dioxide 22 (22-30) mmol/L Anion Gap 10 mmol/L BUN 23 H (9-20) mg/dL Creatinine 1.10 (0.66-1.25) mg/dL Est GFR (CKD-EPI)AfAm 77 (>60 ml/min/1.73 sqM) Est GFR (CKD-EPI)NonAf 67 (>60 ml/min/1.73 sqM) Glucose 112 H (74-99) mg/dL Calcium 9.5 (8.4-10.2) mg/dL Magnesium 1.8 (1.6-2.3) mg/dL Total Bilirubin 1.1 (0.2-1.3) mg/dL AST 35 (17-59) U/L ALT 22 (4-49) U/L Alkaline Phosphatase 95 (38-126) U/L Troponin I (0.000-0.034) ng/mL Total Protein 6.7 (6.3-8.2) g/dL Albumin 4.3 (3.5-5.0) g/dL 12/05/23 Range/Units 23:15 WBC (3.8-10.6) k/uL RBC (4.30-5.90) m/uL Hgb (13.0-17.5) gm/dL Hct (39.0-53.0) % MCV (80.0-100.0) fL MCH (25.0-35.0) pg MCHC (31.0-37.0) g/dL RDW (11.5-15.5) % Plt Count (150-450) k/uL MPV Neutrophils % % Lymphocytes % % Monocytes % % Eosinophils % % Basophils % % Neutrophils # (1.3-7.7) k/uL Lymphocytes # (1.0-4.8) k/uL Monocytes # (0-1.0) k/uL Eosinophils # (0-0.7) k/uL Basophils # (0-0.2) k/uL PT (10.0-12.5) sec INR (<1.2) APTT (22.0-30.0) sec Sodium (137-145) mmol/L Potassium (3.5-5.1) mmol/L Chloride (98-107) mmol/L Carbon Dioxide (22-30) mmol/L Anion Gap mmol/L BUN (9-20) mg/dL Creatinine (0.66-1.25) mg/dL Est GFR (CKD-EPI)AfAm (>60 ml/min/1.73 sqM) Est GFR (CKD-EPI)NonAf (>60 ml/min/1.73 sqM) Glucose (74-99) mg/dL Calcium (8.4-10.2) mg/dL Magnesium (1.6-2.3) mg/dL Total Bilirubin (0.2-1.3) mg/dL AST (17-59) U/L ALT (4-49) U/L Alkaline Phosphatase (38-126) U/L Troponin I <0.012 (0.000-0.034) ng/mL Total Protein (6.3-8.2) g/dL Albumin (3.5-5.0) g/dL - EKG Data -: EKG Interpreted by Me EKG Comments: 12-lead Electrocardiogram Interpretation Note EKG was reviewed and interpreted by myself. 12-lead ECG performed at 2246 is interpreted by me as revealing sinus bradycardia with first-degree AV block at a rate of 54 beats per minute. Sal[place] is normal. [place] interval is 228 ms, QRS duration is 103 ms, QTc is 434 ms.. There were no ST or T wave abnormalities to suggest myocardial ischemia or injury. R wave progression across the precordium was satisfactory. By my interpretation this EKG is non-diagnostic for acute ischemia. No significant change when compared with EKG from [facility] obtained earlier today. Disposition Clinical Impression: Chest pain, Dizzy spells Disposition: ADMITTED IP TO THIS HOSP Condition: Stable Time of Disposition: 00:35
[2023-12-06] MEDS ORDERED: ONDANSETRON 4 MG/2 ML VIAL IVP PRN (00:36)
[2023-12-06] MEDS ORDERED: NALOXONE 0.4 MG/ML 1 ML VIAL IV PRN (00:36)
[2023-12-06] MEDS: MECLIZINE 12.5 MG TAB PO STA (01:17)
[2023-12-06] MEDS ORDERED: HEPARIN SODIUM 1,000 UN/ML (10ML VL) IV PRN (01:58)
--- NOTE | 2023-12-06 01:59 | P.HPIM ---
History of Present Illness H&P Date: 12/06/23 Patient is a 72-year-old male with a PMH of CAD status post multiple stents, type II DM, BPH, hypertension, and hyperlipidemia who was transferred from [facility] where the patient had presented with complaints of chest discomfort. Patient reports that over the past 1 month he has been experiencing intermittent substernal chest tightness with exertion with associated lightheadedness and shortness of breath. He also reports some diaphoresis. Denies loss of consciousness, fever, chills, cough, abdominal pain, diarrhea. Notes that over the past 24 hours he has been becoming more diaphoretic and lightheaded with ambulation which prompted him to come to the emergency room. He reports no pain over the past few hours since going to the emergency room at [facility] and is currently asymptomatic at the time of interview. EKG in the emergency room revealed sinus bradycardia with first-degree AV block at 54 bpm with an incomplete right bundle branch block and criteria for LVH along with T wave flattening in leads III and aVF as reviewed by me. Laboratory evaluation revealed troponin < 0.012, WBC count 9.0, hgb 15, plt 202. ED documentation reviewed and case discussed with ED provider. Review of systems: Pertinent positives and negatives as discussed in HPI, a complete review of systems was performed and all other systems are negative. Physical examination: Vital signs reviewed General: non toxic, no distress, appears at stated age, obese Derm: no unusual rashes/lesions, warm Head: atraumatic, normocephalic, symmetric Eyes: EOMI, no lid lag, anicteric sclera, pupils equal round reactive to light ENT: Nose and ears atraumatic Neck: No cervical lymphadenopathy, trachea midline, supple Mouth: no lip lesion, mucus membranes moist Cardiovascular: S1S2 reg, no murmur, positive dorsalis pedis pulse bilateral, no edema Lungs: CTA bilateral, no rhonchi, no rales, no accessory muscle use Abdominal: soft, nontender to palpation, no guarding Ext: muscle strength 5 out of 5 in all 4 extremities grossly, no gross muscle atrophy, no contractures, Neuro: CN II-XI grossly intact, no gross focal neuro deficits Psych: Alert, oriented, appropriate affect Assessment: Unstable angina Chronic conditions: Type II DM, hypertension, hyperlipidemia, BPH Imaging: EKG in the emergency room revealed sinus bradycardia with first-degree AV block at 54 bpm with an incomplete right bundle branch block and criteria for LVH along with T wave flattening in leads III and aVF as reviewed by me. Data Review: Laboratory evaluation revealed troponin < 0.012, WBC count 9.0, hgb 15, plt 202. Plan: Initiate heparin infusion low-dose Continue with aspirin and statin Cardiology consulted Cardiac monitoring Trend troponin Continue with nitroglycerin and IV fluids normal saline 75 cc/h DVT prophylaxis: heparin infusion The patient is admitted with an anticipated less than 2 midnight stay for evaluation of unstable angina CODE STATUS: Full Code Discussed with: Patient Anticipated discharge place: Home Past Medical History Past Medical History: Cancer, Chest Pain / Angina, Diabetes Mellitus, GERD/Reflux, Hyperlipidemia, Hypertension, Myocardial Infarction ([place]), Neurologic Disorder, Osteoarthritis ([place]), Pneumonia, Prostate Disorder, Sleep Apnea/CPAP/BIPAP Additional Past Medical History / Comment(s): See Dr Sheth's H&P, SOB w/exertion started in October, supposed to use CPAP,. BLADDER CA 2006. BPH, seasonal allergies, sinus problems,. BILAT TINNITIS. NEUROPATHY-BILAT FEET Last Myocardial Infarction Date:: 2014 History of Any Multi-Drug Resistant Organisms: None Reported Past Surgical History: Appendectomy, Bladder Surgery, Heart Catheterization With Stent, Hernia Repair, Orthopedic Surgery, Prostate Surgery, Tonsillectomy Additional Past Surgical History / Comment(s): COLONOSCOPY, bladder tumor removed. EGD, total of 8 stents,. ORIF RT ANKLE. REMOVAL HARDWARE. Cervical Fusion C4,C5,C6. Past Anesthesia/Blood Transfusion Reactions: Motion Sickness Additional Past Anesthesia/Blood Transfusion Reaction / Comment(s): OCCASIONAL VERTIGO Date of Last Stent Placement:: LAST ONE 2014 Past Psychological History: No Psychological Hx Reported Smoking Status: Former smoker Past Alcohol Use History: None Reported Past Drug Use History: None Reported - Past Family History Mother Family Medical History: Cancer Additional Family Medical History / Comment(s): ARRYTHMIA, VALVE REPLACEMENT. Father Family Medical History: Myocardial Infarction ([place]) Additional Family Medical History / Comment(s): AGE 62 Medications and Allergies Home Medications Medication Instructions Recorded Confirmed Type Cholecalciferol [Vitamin D3 (25 5,000 unit PO DAILY 05/08/16 02/23/21 History Mcg = 1000 Iu)] lisinopriL [Zestril] 15 mg PO DAILY 05/08/16 02/25/21 History Aspirin 325 mg PO DAILY 02/23/21 02/25/21 History Cetirizine HCl [Zyrtec] 10 mg PO DAILY 02/23/21 02/23/21 History Metoprolol Tartrate [Lopressor] 12.5 mg PO BID 02/23/21 02/25/21 History Omeprazole 20 mg PO DAILY 02/23/21 02/25/21 History Pravastatin Sodium [Pravachol] 40 mg PO DAILY 02/23/21 02/25/21 History metFORMIN HCL [Glucophage] 500 mg PO BID 02/23/21 02/25/21 History Allergies Allergy/AdvReac Type Severity Reaction Status Date / Time No Known Allergies Allergy Verified 12/05/23 23:25 Physical Exam Vitals: Vital Signs Temp Pulse Pulse Resp BP Pulse Ox 12/05/23 23:32 20 12/05/23 23:31 55 L 12/05/23 23:25 59 L 20 97 12/05/23 23:00 97.8 F 55 L 18 141/71 97 Intake and Output 12/05/23 12/05/23 12/06/23 14:59 22:59 06:59 Other: Weight 119.748 kg Results CBC & Chem 7: 12/05/23 23:15 12/05/23 23:15 Labs: Abnormal Lab Results - Last 24 Hours (Table) 12/05/23 Range/Units 23:15 BUN 23 H (9-20) mg/dL Glucose 112 H (74-99) mg/dL
[2023-12-06 04:19] LABS: Basophils # (A) 0.1 k/uL (0-0.2); Basophils % (A) 1 %; Eosinophils # (A) 0.2 k/uL (0-0.7); Eosinophils % (A) 3 %; HCT 42.5 % (39.0-53.0); HGB 14.1 gm/dL (13.0-17.5); Lymphocytes # (A) 2.2 k/uL (1.0-4.8); Lymphocytes % (A) 31 %; MCH 29.8 pg (25.0-35.0); MCHC 33.2 g/dL (31.0-37.0); MCV 89.7 fL (80.0-100.0); Monocytes # (A) 0.5 k/uL (0-1.0); Monocytes % (A) 7 %; Neutrophils % (A) 56 %; Platelet Count 181 k/uL (150-450); RBC 4.74 m/uL (4.30-5.90); RDW 14.4 % (11.5-15.5)
[2023-12-06 04:28] LABS: Partial Thromboplastin Time 26.6 sec (22.0-30.0)
[2023-12-06] MEDS: HEPARIN SOD,PORK IN 0.45% NACL 25,000 UNIT in 0.45% NACL 1 250ML.BAG IV SCH (04:31)
[2023-12-06] MEDS: ATORVASTATIN 80 MG TAB PO STA (04:32)
[2023-12-06 06:27] LABS: Glucose,Whole Blood 140 mg/dL (70-110)
[2023-12-06] MEDS ORDERED: HEPARIN SODIUM,PORCINE 5,000 UNIT/ML 1 ML VIAL SQ SCH (08:00)
[2023-12-06] MEDS: ASPIRIN 81 MG PO SCH (09:08)
[2023-12-06 11:41] LABS: Glucose,Whole Blood 145 mg/dL (70-110)
[2023-12-06] MEDS ORDERED: carvediloL 3.125 MG TAB PO SCH (12:00)
[2023-12-06] MEDS: carvediloL 6.25 MG TAB PO SCH (12:33)
[2023-12-06] MEDS: lisinopriL 20 MG TAB PO SCH (12:33)
--- NOTE | 2023-12-06 12:40 | P.CRDCN ---
History of Present Illness Consult date: 12/06/23 Consult reason: chest pain History of present illness: This is a 72-year-old male patient of Dr. Cameron Pearson with past medical history of hypertension, dyslipidemia, coronary artery disease with previous PCI, diabetes mellitus type 2. We have been asked to evaluate the patient for chest pain. Patient gives history that he has had episodes where he is walking and he starts feeling dizzy and then chest pain develops and its like he has a shot of adrenaline, his heart rate jumps up to the 140s. In the chest pain he feels like somebody is sitting on him. He states he was seen by his PCP and was sent into the emergency center for evaluation. When patient got up to ambulate this morning, he went into a regular narrow-complex tachycardia and resolved once patient sat down and patient returned to a sinus rhythm in the 50s. Blood pressure 126/81, heart rate 58, pulse ox 90% on room air. Patient has been started on heparin drip. He denies having any chest pain at this time. EKG: Sinus rhythm 54 bpm, no acute ST-T wave changes Chest x-ray: Laboratory studies: Hemoglobin 14.1. Troponin negative x 2, BUN 23 creatinine 1.1, potassium 4.5. Home cardiac medications obtain from the office note dated 07/04/2023 includes aspirin 325 mg daily, lisinopril 20 mg daily, Nitrostat as needed, rosuvastatin 40 mg daily. Echocardiogram performed in the office on 02/28/2023 reveals EF 55%, trace aortic regurgitation, mild mitral regurgitation, mild tricuspid regurgitation, PASP 34 mmHg. Lexiscan Cardiolite stress test performed in the office on 02/10/2021 was a negative Lexiscan stress test. Abnormal perfusion study with mildly reversible defect involving the mid anterior wall and lateral wall of mild degree. Gated images showed normal wall motion and thickening. Left ventricular cavity is slightly dilated during the stress portion. Cardiac cath history: PCI of the proximal circumflex 09/04/2017 Cardiac catheterization in 2014 with 40% ostial diagonal 1, 100% proximal circumflex, 30% mid RCA. PCI of the proximal circumflex 04/21/2015 in the setting of a non-ST elevated [place]. Review Of Systems: At the time of my exam: CONSTITUTIONAL: Denies fever or chills. HEENT: Denies blurred vision, vision changes, or eye pain. Denies hemoptysis CARDIOVASCULAR: Denies chest pain. Denies orthopnea. Denies PND. Denies palpitations RESPIRATORY: Denies shortness of breath. GASTROINTESTINAL: Denies abdominal pain. Denies nausea or vomiting. HEMATOLOGIC: Denies bleeding disorders. GENITOURINARY: Denies any blood in urine. SKIN: Denies puritis. Denies rash. Physical examination: Gen: This is 72-year-old male in no acute distress VS: reviewed HEENT: Head is atraumatic, normocephalic. Pupils equal, round. Sclerae is anicteric. NECK: Supple. No JVD. LUNGS: Clear to auscultation. No wheezes or rhonchi. No intercostal retractions. HEART: Regular rate and rhythm. No murmur. ABDOMEN: Soft No tenderness. EXTREMITIES: No pedal edema. No calf tenderness. NEUROLOGICAL: Patient is awake, alert and oriented x3. Assessment: Atypical chest pain, acute coronary syndrome ruled out with negative troponins Chest pain most likely secondary to tachycardia Atrial tachycardia versus SVT episodes causing dizziness History of coronary artery disease with previous PCI Hypertension Dyslipidemia Plan: Resume lisinopril, statin and aspirin Discontinue amitriptyline completely Discontinue Nitropaste Discontinue heparin drip Start patient on Coreg 6.25 mg twice daily Obtain 2-D echocardiogram and Doppler study to assess cardiac structure and fu nction Plan to ambulate patient after he receives Coreg and monitor heart rates Plan for event monitor from [facility] office at the time of discharge. We will call the office on Sunday to make arrangements. Further recommendations to follow based upon clinical course At the time of discharge, patient will follow-up with Dr. Cameron Pearson in the office. Thank you kindly for this consultation. Nurse practitioner note has been reviewed, I agree with documented findings and plan of care. Patient was seen and examined. Past Medical History Past Medical History: Cancer, Chest Pain / Angina, Diabetes Mellitus, GERD/Reflux, Hyperlipidemia, Hypertension, Myocardial Infarction ([place]), Neurologic Disorder, Osteoarthritis (OA), Pneumonia, Prostate Disorder, Sleep Apnea/CPAP/BIPAP Additional Past Medical History / Comment(s): See Dr Sheth's H&P, SOB w/exertion started in October, supposed to use CPAP,. BLADDER CA 2006. BPH, seasonal allergies, sinus problems,. BILAT TINNITIS. NEUROPATHY-BILAT FEET Last Myocardial Infarction Date:: 2014 History of Any Multi-Drug Resistant Organisms: None Reported Past Surgical History: Appendectomy, Bladder Surgery, Heart Catheterization With Stent, Hernia Repair, Orthopedic Surgery, Prostate Surgery, Tonsillectomy Additional Past Surgical History / Comment(s): COLONOSCOPY, bladder tumor removed. EGD, total of 8 stents,. ORIF RT ANKLE. REMOVAL HARDWARE. Cervical Fusion C4,C5,C6. Past Anesthesia/Blood Transfusion Reactions: Motion Sickness Additional Past Anesthesia/Blood Transfusion Reaction / Comment(s): OCCASIONAL VERTIGO Date of Last Stent Placement:: LAST ONE 2014 Past Psychological History: No Psychological Hx Reported Smoking Status: Former smoker Past Alcohol Use History: None Reported Additional Past Alcohol Use History / Comment(s): quit smoking Jan,smoked approx 20 yrs,1ppd Past Drug Use History: None Reported - Past Family History Mother Family Medical History: Cancer Additional Family Medical History / Comment(s): ARRYTHMIA, VALVE REPLACEMENT. Father Family Medical History: Myocardial Infarction ([place]) Additional Family Medical History / Comment(s): AGE 62 Medications and Allergies Home Medications Medication Instructions Recorded Confirmed Type Cholecalciferol [Vitamin D3 (25 125 mcg PO DAILY 05/08/16 12/06/23 History Mcg = 1000 Iu)] Omeprazole 20 mg PO BID 02/23/21 12/06/23 History metFORMIN HCL [Glucophage] 1,000 mg PO BID 02/23/21 12/06/23 History Aspirin EC [Ecotrin] 325 mg PO DAILY 12/06/23 12/06/23 History DULoxetine HCL [Cymbalta] 30 mg PO BID 12/06/23 12/06/23 History Meclizine [Antivert] 25 mg PO HS 12/06/23 12/06/23 History Montelukast [Singulair] 10 mg PO DAILY 12/06/23 12/06/23 History Rosuvastatin Calcium [Crestor] 40 mg PO HS 12/06/23 12/06/23 History lisinopriL [Prinivil] 20 mg PO DAILY 12/06/23 12/06/23 History Allergies Allergy/AdvReac Type Severity Reaction Status Date / Time No Known Allergies Allergy Verified 12/06/23 12:09 Physical Exam Vitals: Vital Signs Temp Pulse Pulse Resp BP BP Pulse Ox 12/06/23 05:22 18 12/06/23 04:29 58 L 16 126/81 98 12/06/23 03:18 98.4 F 65 16 137/71 97 12/06/23 02:25 58 L 18 130/65 98 12/05/23 23:32 20 12/05/23 23:31 55 L 12/05/23 23:25 59 L 20 97 12/05/23 23:00 97.8 F 55 L 18 141/71 97 Intake and Output 12/05/23 12/06/23 12/06/23 22:59 06:59 14:59 Intake Total 240 Balance 240 Intake: Oral 240 Other: # Voids 1 Weight 119.748 kg Results 12/06/23 03:44 12/05/23 23:15 Cardiac Enzymes 12/05/23 12/05/23 12/06/23 Range/Units 23:15 23:15 03:44 AST 35 (17-59) U/L Troponin I <0.012 <0.012 (0.000-0.034) ng/mL Coagulation 12/05/23 12/06/23 Range/Units 23:15 03:44 PT 11.1 11.0 (10.0-12.5) sec APTT 23.9 26.6 (22.0-30.0) sec CBC 12/05/23 12/06/23 Range/Units 23:15 03:44 WBC 9.0 7.0 (3.8-10.6) k/uL RBC 5.14 4.74 (4.30-5.90) m/uL Hgb 15.0 14.1 (13.0-17.5) gm/dL Hct 45.5 42.5 (39.0-53.0) % Plt Count 202 181 (150-450) k/uL Comprehensive Metabolic Panel 12/05/23 Range/Units 23:15 Sodium 137 (137-145) mmol/L Potassium 4.5 (3.5-5.1) mmol/L Chloride 105 (98-107) mmol/L Carbon Dioxide 22 (22-30) mmol/L BUN 23 H (9-20) mg/dL Creatinine 1.10 (0.66-1.25) mg/dL Glucose 112 H (74-99) mg/dL Calcium 9.5 (8.4-10.2) mg/dL AST 35 (17-59) U/L ALT 22 (4-49) U/L Alkaline Phosphatase 95 (38-126) U/L Total Protein 6.7 (6.3-8.2) g/dL Albumin 4.3 (3.5-5.0) g/dL Current Medications Generic Name Dose Route Start Last Admin Trade Name Freq PRN Reason Stop Dose Admin Aspirin 81 mg 12/06/23 09:00 Aspirin 81 Mg PO DAILY [facility] Atorvastatin Calcium 80 mg 12/06/23 21:00 Atorvastatin 80 Mg Tab PO HS [facility] Heparin Sodium (Porcine) 0 unit 12/06/23 01:58 Heparin Sodium 1,000 Un/Ml (10ml Vl) IV PER PROTOCOL PRN Low PTT Protocol Sodium Chloride 1,000 mls @ 75 mls/hr 12/05/23 23:03 12/05/23 23:34 Saline 0.9% IV 12/06/23 12:22 75 mls/hr .[id number] STA Administration Heparin Sodium/Sodium Chloride 250 mls @ 9.999 mls/hr 12/06/23 02:00 12/06/23 04:31 25,000 unit/ Sodium Chloride IV 8.35 units/kg/hr .Q24H LOUISE 9.999 mls/hr Administration Protocol 8.35 UNITS/KG/HR Naloxone HCl 0.2 mg 12/06/23 00:36 Naloxone 0.4 Mg/Ml 1 Ml Vial IV Q2M PRN Opioid Reversal Nitroglycerin 0.5 inch 12/06/23 00:00 12/05/23 23:34 Nitroglycerin Oint 1 Inch/Gm Packet TOPICAL 0.5 inch Q8HR LOUISE Administration Ondansetron HCl 4 mg 12/06/23 00:36 Ondansetron 4 Mg/2 Ml Vial IVP Q8HR PRN Nausea And Vomiting Intake and Output 12/05/23 12/06/23 12/06/23 22:59 06:59 14:59 Intake Total 240 Balance 240 Intake: Oral 240 Other: # Voids 1 Weight 119.748 kg 12/06/23 03:44 12/05/23 23:15
[2023-12-06 16:31] LABS: Glucose,Whole Blood 118 mg/dL (70-110)
[2023-12-06 20:01] LABS: Glucose,Whole Blood 184 mg/dL (70-110)
[2023-12-06] MEDS: ATORVASTATIN 80 MG TAB PO SCH (20:03)
[2023-12-07 04:25] VITALS: TEMP 98.1
[2023-12-07 06:12] LABS: Glucose,Whole Blood 134 mg/dL (70-110)
[2023-12-07 07:53] VITALS: RESP 16
[2023-12-07 08:52] LABS: Basophils # (A) 0.1 k/uL (0-0.2); Basophils % (A) 1 %; Eosinophils # (A) 0.2 k/uL (0-0.7); Eosinophils % (A) 3 %; HGB 14.5 gm/dL (13.0-17.5); Lymphocytes % (A) 31 %; MCH 29.8 pg (25.0-35.0); MCHC 32.9 g/dL (31.0-37.0); MCV 90.5 fL (80.0-100.0); Mean Platelet Volume 8.3; Monocytes # (A) 0.4 k/uL (0-1.0); Monocytes % (A) 6 %; Neutrophils # (A) 3.6 k/uL (1.3-7.7); Neutrophils % (A) 56 %; Platelet Count 190 k/uL (150-450); RBC 4.86 m/uL (4.30-5.90); RDW 14.7 % (11.5-15.5); WBC 6.4 k/uL (3.8-10.6)
[2023-12-07 09:06] LABS: ALT 17 U/L (4-49); AST 25 U/L (17-59); African American GFR (CKD) 68 (>60 ml/min/1.73 sqM); Albumin 3.9 g/dL (3.5-5.0); Alkaline Phosphatase 81 U/L (38-126); Anion Gap 7 mmol/L; Blood Urea Nitrogen 25 mg/dL (9-20); Calcium 9.4 mg/dL (8.4-10.2); Carbon Dioxide 25 mmol/L (22-30); Chloride 103 mmol/L (98-107); Glucose 231 mg/dL (74-99); Non-African American GFR(CKD) 59 (>60 ml/min/1.73 sqM); Potassium 4.7 mmol/L (3.5-5.1); Sodium 135 mmol/L (137-145); Total Bilirubin 0.9 mg/dL (0.2-1.3); Total Protein 6.3 g/dL (6.3-8.2)
[2023-12-07] MEDS: lisinopriL 10 MG TAB PO SCH (10:05)
--- NOTE | 2023-12-07 10:14 | P.DS ---
Providers Date of admission: 12/06/23 00:36 Expected date of discharge: 12/07/23 Attending physician: Preston Jara MD Consults: 12/06/23 00:36 Consult Physician Routine Consulting Provider: [facility] Consult Reason/Comments: chest pain Do you want consulting provider notified?: Yes Primary care physician: [facility] Course: Discharge diagnosis: Atypical chest pain, acute coronary syndrome ruled out with negative troponins Chest pain most likely secondary to tachycardia Atrial tachycardia versus SVT episodes causing dizziness History of coronary artery disease with previous PCI Hypertension Dyslipidemia H&P Date: 12/06/23 Patient is a 72-year-old male with a PMH of CAD status post multiple stents, type II DM, BPH, hypertension, and hyperlipidemia who was transferred from [facility] where the patient had presented with complaints of chest discomfort. Patient reports that over the past 1 month he has been experiencing intermittent substernal chest tightness with exertion with associated lightheadedness and shortness of breath. He also reports some diaphoresis. Denies loss of consciousness, fever, chills, cough, abdominal pain, diarrhea. Notes that over the past 24 hours he has been becoming more diaphoretic and lightheaded with ambulation which prompted him to come to the emergency room. He reports no pain over the past few hours since going to the emergency room at [facility] and is currently asymptomatic at the time of interview. EKG in the emergency room revealed sinus bradycardia with first-degree AV block at 54 bpm with an incomplete right bundle branch block and criteria for LVH along with T wave flattening in leads III and aVF as reviewed by me. Laboratory evaluation revealed troponin < 0.012, WBC count 9.0, hgb 15, plt 202. ED documentation reviewed and case discussed with ED provider. Hospital course and treatment: Patient admitted to hospital with chest pain likely atypical, evaluated by cardiology negative cardiac enzymes, chest pain resolved. Atrial tachycardia Patient was started on Coreg neck some 2-D echo to be obtained Medications adjusted per cardiology including discontinuing amitriptyline Nitropaste and starting Coreg. Patient feels much better, he'll be discharged home with cardiology follow-up, he will need tissue inserter as an outpatient. Patient Condition at Discharge: Fair Plan - Discharge Summary Discharge Rx Participant: No New Discharge Prescriptions: New carvediloL [Coreg] 6.25 mg PO BID-W/MEALS 30 Days #60 tab Continue Cholecalciferol [Vitamin D3 (25 Mcg = 1000 Iu)] 125 mcg PO DAILY metFORMIN HCL [Glucophage] 1,000 mg PO BID Omeprazole 20 mg PO BID DULoxetine HCL [Cymbalta] 30 mg PO BID Meclizine [Antivert] 25 mg PO HS Aspirin EC [Ecotrin] 325 mg PO DAILY lisinopriL [Prinivil] 20 mg PO DAILY Montelukast [Singulair] 10 mg PO DAILY Rosuvastatin Calcium [Crestor] 40 mg PO HS Discharge Medication List Cholecalciferol [Vitamin D3 (25 Mcg = 1000 Iu)] 125 mcg PO DAILY 05/08/16 [History] Omeprazole 20 mg PO BID 02/23/21 [History] metFORMIN HCL [Glucophage] 1,000 mg PO BID 02/23/21 [History] Aspirin EC [Ecotrin] 325 mg PO DAILY 12/06/23 [History] DULoxetine HCL [Cymbalta] 30 mg PO BID 12/06/23 [History] Meclizine [Antivert] 25 mg PO HS 12/06/23 [History] Montelukast [Singulair] 10 mg PO DAILY 12/06/23 [History] Rosuvastatin Calcium [Crestor] 40 mg PO HS 12/06/23 [History] lisinopriL [Prinivil] 20 mg PO DAILY 12/06/23 [History] carvediloL [Coreg] 6.25 mg PO BID-W/MEALS 30 Days #60 tab 12/07/23 [Rx] Follow up Appointment(s)/Referral(s): Kirby Davis DO [Primary Care Provider] - 1-2 days Yossi Pearson MD [STAFF PHYSICIAN] - 1 Week Activity/Diet/Wound Care/Special Instructions: Event Monitor 30d to be picked up at [facility]. Discharge Disposition: HOME SELF-CARE
[2023-12-07 11:21] VITALS: BP 127/63; PULSE 48
[2023-12-07 11:39] LABS: Glucose,Whole Blood 160 mg/dL (70-110)
--- NOTE | 2023-12-07 12:39 | CA ---
Transthoracic Echo Report Name: Bobo Cole Age: 72 Gender: M : 1950 Exam Date: 12/07/2023 11:27 Exam Location: [facility] Ht (in): 72 Wt (lb): 264 Ordering Physician: Katie Chase Attending/Referring Phys: [id number], Rena [employer] Geotechnical Engineer Juanita Dye RDCS Procedure CPT: Indications: LVF Cardiac Hx: Technical Quality: Good Contrast 1: Total Dose (mL): Contrast 2: Total Dose (mL): MEASUREMENTS (Male / Female) Normal Values 2D ECHO LV Diastolic Diameter PLAX 4.9 cm 4.2 - 5.9 / 3.9 - 5.3 cm LV Systolic Diameter PLAX 3.7 cm IVS Diastolic Thickness 1.1 cm 0.6 - 1.0 / 0.6 - 0.9 cm LVPW Diastolic Thickness 1.1 cm 0.6 - 1.0 / 0.6 - 0.9 cm LV Relative Wall Thickness 0.5 RV Internal Dim ED PLAX 3.7 cm LA Systolic Diameter LX 4.5 cm 3.0 - 4.0 / 2.7 - 3.8 cm LV Diastolic Volume MOD 4C 101.9 cm??? LV Systolic Volume MOD 4C 43.1 cm??? LV Ejection Fraction MOD 4C 57.7 % LV Cardiac Index MOD 4C 960.5 cm???/min???m??? LV Diastolic Length 4C 9.0 cm LV Systolic Length 4C 6.9 cm LA Volume 62.1 cm??? 18 - 58 / 22 - 52 cm??? LA Volume Index 24.8 cm???/m??? 16 - 28 cm???/m??? M-MODE Aortic Root Diameter MM 3.6 cm AV Cusp Separation MM 2.9 cm DOPPLER AV Peak Velocity 132.7 cm/s AV Peak Gradient 7.0 mmHg MV Area PHT 3.7 cm??? Mitral E Point Velocity 73.2 cm/s Mitral A Point Velocity 94.6 cm/s Mitral E to A Ratio 0.8 MV Deceleration Time 205.1 ms TR Peak Velocity 302.6 cm/s TR Peak Gradient 36.6 mmHg Right Ventricular Systolic Press 41.6 mmHg FINDINGS Left Ventricle Left ventricular ejection fraction is estimated at 55-60 %. Left ventricular cavity size normal. Normal left ventricular systolic function with no obvious regional wall motion abnormalities. Right Ventricle Mild right ventricular dilatation. Mild pulmonary hypertension. Right Atrium Normal right atrial size. No right atrial thrombus or mass seen. Left Atrium Mildly increased left atrial diameter. Mildly increased left atrial volume. Mildly increased left atrial area. Mitral Valve Structurally normal mitral valve. Mitral annular calcification. Aortic Valve Trileaflet aortic valve. No aortic valve stenosis or regurgitation. Tricuspid Valve Structurally normal tricuspid valve. Mild tricuspid regurgitation. Pulmonic Valve Structurally normal pulmonic valve. Trace pulmonic regurgitation. Pericardium No pericardial effusion. No pleural effusion. Aorta Normal size aortic root and proximal ascending aorta. CONCLUSIONS 1. Normal left ventricular size and systolic function 2. Mild tricuspid regurgitation with mild pulmonary hypertension Previewed by: Dr. Silvia Azar MD (Electronically Signed) Final Date: 07 December 2023 12:38
--- NOTE | 2023-12-07 13:48 | P.PN ---
Subjective Progress Note Date: 12/07/23 Consult reason: chest pain History of present illness: This is a 72-year-old male patient of Dr. Cameron Pearson with past medical history of hypertension, dyslipidemia, coronary artery disease with previous PCI, diabetes mellitus type 2. We have been asked to evaluate the patient for chest pain. Patient gives history that he has had episodes where he is walking and he starts feeling dizzy and then chest pain develops and its like he has a shot of adrenaline, his heart rate jumps up to the 140s. In the chest pain he feels like somebody is sitting on him. He states he was seen by his PCP and was sent into the emergency center for evaluation. When patient got up to ambulate this morning, he went into a regular narrow-complex tachycardia and resolved once patient sat down and patient returned to a sinus rhythm in the 50s. Blood pressure 126/81, heart rate 58, pulse ox 90% on room air. Patient has been started on heparin drip. He denies having any chest pain at this time. EKG: Sinus rhythm 54 bpm, no acute ST-T wave changes Laboratory studies: Hemoglobin 14.1. Troponin negative x 2, BUN 23 creatinine 1.1, potassium 4.5. Home cardiac medications obtain from the office note dated 07/04/2023 includes aspirin 325 mg daily, lisinopril 20 mg daily, Nitrostat as needed, rosuvastatin 40 mg daily. Echocardiogram performed in the office on 02/28/2023 reveals EF 55%, trace aortic regurgitation, mild mitral regurgitation, mild tricuspid regurgitation, PASP 34 mmHg. Lexiscan Cardiolite stress test performed in the office on 02/10/2021 was a negative Lexiscan stress test. Abnormal perfusion study with mildly reversible defect involving the mid anterior wall and lateral wall of mild degree. Gated images showed normal wall motion and thickening. Left ventricular cavity is slightly dilated during the stress portion. Cardiac cath history: PCI of the proximal circumflex 09/04/2017 Cardiac catheterization in 2014 with 40% ostial diagonal 1, 100% proximal circumflex, 30% mid RCA. PCI of the proximal circumflex 04/21/2015 in the setting of a non-ST elevated [place]. 12/06 Patient is seen today in follow-up. Heart rate has been on the low side in the 50s mostly sometimes 40s and afternoon Coreg was not given yesterday. Apparently ambulated after his Coreg yesterday morning but did not have any issues. He denies having any chest pain. Orthostatic vital signs were negative. Pulse ox 99% on room air, blood pressure 120/65, heart rate 57. Echo cardiogram reveals EF of 55 to 60%. Mild tricuspid regurgitation and mild pulmonary hypertension. We asked patient to ambulate in the hallway for 6 minutes after he took his Coreg and lisinopril this morning. The patient did so and was feeling well during that process. His heart rate was in the 40s at rest and went to the 50s and 60s while he was ambulating. He had no symptoms of dizziness nor palpitations. Physical examination: Gen: This is 72-year-old male in no acute distress VS: reviewed HEENT: Head is atraumatic, normocephalic. Pupils equal, round. Sclerae is anicteric. NECK: Supple. No JVD. LUNGS: Clear to auscultation. No wheezes or rhonchi. No intercostal retractions. HEART: Regular rate and rhythm. No murmur. ABDOMEN: Soft No tenderness. EXTREMITIES: No pedal edema. No calf tenderness. NEUROLOGICAL: Patient is awake, alert and oriented x3. Assessment: Atypical chest pain, acute coronary syndrome ruled out with negative troponins Chest pain most likely secondary to tachycardia Atrial tachycardia versus SVT episodes causing dizziness History of coronary artery disease with previous PCI Hypertension Dyslipidemia Plan: Continue lisinopril, statin and aspirin Continue patient on Coreg 6.25 mg twice daily Event monitor to be picked up at [facility] office today. Patient is cleared for discharge from cardiology At the time of discharge, patient will follow-up with Dr. Cameron Pearson in the office in 5 to 6 weeks. Nurse practitioner note has been reviewed, I agree with documented findings and plan of care. Patient was seen and examined. Objective - Vital Signs Vital signs: Vital Signs Temp 98.1 F 12/07/23 04:00 Pulse 57 L 12/07/23 07:48 Resp 16 12/07/23 07:48 BP 120/65 12/07/23 07:48 Pulse Ox 99 12/07/23 07:48 FiO2 Intake & Output 12/06/23 12/07/23 12/07/23 18:59 06:59 18:59 Intake Total 346 Balance 346 Weight 119.4 kg Intake: Oral 346 Other: # Voids 1 1 - Labs CBC & Chem 7: 12/07/23 08:12 12/07/23 08:12 Labs: Abnormal Lab Results - Last 24 Hours (Table) 12/06/23 12/06/23 12/06/23 Range/Units 10:34 11:40 16:29 APTT 36.2 H (22.0-30.0) sec Sodium (137-145) mmol/L BUN (9-20) mg/dL Glucose (74-99) mg/dL POC Glucose (mg/dL) 145 H 118 H (70-110) mg/dL 12/06/23 12/07/23 12/07/23 Range/Units 19:59 06:10 08:12 APTT (22.0-30.0) sec Sodium 135 L (137-145) mmol/L BUN 25 H (9-20) mg/dL Glucose 231 H (74-99) mg/dL POC Glucose (mg/dL) 184 H 134 H (70-110) mg/dL
== END 2023-12-07 14:28 | disposition home or self-care (01) ==
LOC: SUPCPDRO 22:36 → EC 22:36 → 6NMEDSUR 12-06 00:36 → 3SCARD 12-06 03:08
PROVIDERS: ADMIT Internal Medicine; ATTEND Internal Medicine
DX: R07.89 Other chest pain (principal); E78.5 Hyperlipidemia, unspecified; I10 Essential (primary) hypertension; K21.9 Gastro-esophageal reflux disease without esophagitis; G47.30 Sleep apnea, unspecified; N40.0 Benign prostatic hyperplasia without lower urinary tract symptoms; E11.40 Type 2 diabetes mellitus with diabetic neuropathy, unspecified; I25.10 Atherosclerotic heart disease of native coronary artery without angina pectoris; I25.2 Old myocardial infarction; Z85.51 Personal history of malignant neoplasm of bladder; Z87.891 Personal history of nicotine dependence; Z95.5 Presence of coronary angioplasty implant and graft; Z79.82 Long term (current) use of aspirin; Z79.84 Long term (current) use of oral hypoglycemic drugs; Z79.899 Other long term (current) drug therapy
CPT/HCPCS: 96365; 96366; 96361; 99285; 36415; 93005; 93306; 80053 ×2; 83735; 84484 ×2; 85025 ×3; 85610 ×2; 85730 ×2; G0378 ×3; J1644

== ENCOUNTER → 2023-12-05 | Outpatient (CLI) | payer MEDICARE ==
--- NOTE | 2023-12-05 16:16 | XR ---
EXAMINATION TYPE: XR chest 2V DATE OF EXAM: 12/05/2023 COMPARISON: 03/03/2022 HISTORY: 72-year-old male [id number], shortness of breath TECHNIQUE: Frontal and lateral views FINDINGS: Heart normal size. Aorta and pulmonary vasculature within normal limits. Medial lung apices obscured by the patient's chin. No consolidation or pleural effusion. DISH in the mid to lower thoracic spine. IMPRESSION: No acute cardiopulmonary process.
== END | disposition home or self-care (01) ==
LOC: RADXRYALE 14:28
PROVIDERS: ATTEND Physician Assistant Medical
DX: R06.02 Shortness of breath (principal)
CPT/HCPCS: 71046